=== PATIENT | female | born 1985 | race Two or more races ===

== ENCOUNTER 2024-10-19 15:00 | Emergency (ER) | payer SELFPAY ==
[~2024-10-19] VITALS: Ht 165.1 cm; Wt 73.0 kg
--- NOTE | 2024-10-19 15:10 | ED.PDOC ---
History of Present Illness HPI Comments 39-year-old female brought by paramedics from home because of chest pain for the past two days. She had chest pain yesterday for which she called the paramedics and but decided to stay home. She continues to have chest pain since yesterday to today. Patient states that she just broke up with her significant other which started the symptoms. Denies any past medical surgical history. 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 History Social History Smoker: Non-Smoker Alcohol: Denies ETOH Use Drugs: Denies Drug Use Constitutional: denies: chills, diaphoresis, fatigue, fever, malaise, sweats, weakness, others EENTM: denies: blurred vision, double vision, ear bleeding, ear discharge, ear drainage, ear pain, ear ringing, eye pain, eye redness, hearing loss, mouth pain, mouth swelling, nasal discharge, nose bleeding, nose congestion, nose pain, photophobia, tearing, throat pain, throat swelling, voice changes, others Respiratory: denies: cough, hemoptysis, orthopnea, SOB at rest, shortness of breath, SOB with excertion, stridor, wheezing, others Cardiovascular: reports: chest pain; denies: dizzy spells, diaphoresis, Dyspnea on exertion, edema, irregular heart beat, left arm pain, lightheadedness, palpitations, PND, syncope, others Gastrointestinal: denies: abdomen distended, abdominal pain, blood streaked bowels, constipated, diarrhea, dysphagia, difficulty swallowing, hematemesis, melena, nausea, poor appetite, poor fluid intake, rectal bleeding, rectal pain, vomiting, others Genitourinary: denies: abnormal vagina bleeding, burning, dyspareunia, dysuria, flank pain, frequency, hematuria, incontinence, pain, , vagina discharge, urgency, others Neurological: denies: dizziness, fainting, headache, left sided numbness, left sided weakness, numbness, paresthesia, pre-existing deficit, right sided numbness, right sided weakness, seizure, speech problems, tingling, tremors, weakness, others Musculoskeletal: denies: back pain, gout, joint pain, joint swelling, muscle pain, muscle stiffness, neck pain, others Integumetry: denies: bruises, change in color, change in hair/nails, dryness, laceration, lesions, lumps, rash, wounds, others Allergic/Immunocompromised: denies: Difficulty Healing, Frequent Infections, Hives, Itching, others Hematologic/Lymphatic: denies: anemia, blood clots, easy bleeding, easy bruising, swollen glands, others Endocrine: denies: excessive hunger, excessive sweating, excessive thirst, excessive urination, flushing, intolerance to cold, intolerance to heat, unexplained weight gain, unexplained weight loss, others Psychiatric: denies: anxiety, bipolar disorder, depression, hopeless, panic disorder, schizophrenia, sleepless, suicidal, others Physical Exam General Appearance: Moderate Distress HEENT: Normal ENT Inspection, Pharynx Normal, TMs Normal Neck: Full Range of Motion, Non-Tender, Normal, Normal Inspection Respiratory: Chest Non-Tender, Lungs Clear, No Accessory Muscle Use, No Respiratory Distress, Normal Breath Sounds Cardiovascular: No Edema, No JVD, No Murmur, No Gallop, Normal Peripheral Pulses, Regular Rate/Rhythm Breast Exam: Deferred Gastrointestinal: No Organomegaly, Non Tender, No Pulsatile Mass, Normal Bowel Sounds, Soft Genitalia: Deferred Pelvic: Deferred Rectal: Deferred Extremities: No calf tenderness, Normal capillary refill, Normal inspection, Normal range of motion, Non-tender, No pedal edema Musculoskeletal : Apperance: Normal Neurologic: Alert, payroll benefits administrator II-XII nml as Tested, No Motor Deficits, Normal Affect, Normal Mood, No Sensory Deficits Cerebellar Function: Normal Reflexes: Normal Skin: Dry, Normal Color, Warm Peripheral Pulses: 3+ Radial (R), 3+ Radial (L) Lymphatic: No Adenopathy Was a procedure done? Was a procedure done?: No EKG EKG : Cardiac Rhythm: NSR Differential Dx Considerations may include: Anxiety X-Ray, Labs, Meds, VS Patient alert. Complaining of chest pain. Vitals stable. Answering questions. She is anxious. Normal sinus rhythm. Was given Ativan. Explained to the patient. Continue monitoring. Stated that she has suicidal ideation to the nurse. Psychiatric evaluation. Time of 1ST Reevaluation: 15:08 Reevaluation 1ST: Unchanged Patient Education/Counseling: Diagnosis, Treatment, Prognosis, Need For Follow Up Family Education/Counseling: No Family Present SEPSIS Sepsis Screen Physician Orders Troponin-I Hs (10/19/24 15:10) *Tele Psych Consult (10/19/24 15:10) Lorazepam Tablet (Ativan Tablet) (10/19/24 15:30) Departure 1 Departure Time of Disposition: 15:09 Impression: Primary Impression: Anxiety Disposition: 01 HOME / SELF CARE / HOMELESS Condition: Good Discharged With: Self Critical Care Note Critical Care Time?: No Stability Stability form required: No Heart Score Heart Score: Heart Score Response (Comments) Value History Slightly Suspicious 0 EKG Normal 0 Age <45 0 Risk Factors No known risk factors 0 Troponin Normal limit 0 Total 0 SABRINA CAIN MD Oct 19, 2024 15:10
[2024-10-19] MEDS: LORazepam 0.5 MG TAB PO ONE (15:31)
[2024-10-19 15:37] VITALS: BP 110/73; TEMP 99.1
[2024-10-19 16:04] VITALS: PULSE 71; RESP 20; O2SAT 96
[2024-10-19 16:10] LABS: Cannabinoid Screen, Urine Neg (NEGATIVE)
[2024-10-19 16:14] LABS: Amphetamine Screen, Urine Neg (NEGATIVE); Barbiturate Scree,Urine Neg (NEGATIVE); Benzodiazephine Screen, Urine Neg (NEGATIVE); Cocaine Screen, Urine Neg (NEGATIVE); Opiate Scree,Urine Neg (NEGATIVE); Phencyclidine Screen, Urine Neg (NEGATIVE)
--- NOTE | 2024-10-20 01:16 | DVHINCON2 ---
Date of Service if different f: Oct 20, 2024 Time of Service: 01:16 Consult Consult Note PSYCHIATRY ED NEW CONSULT HPI: 39 yo F pt with PPH of anxiety presents to ED BIBA for safety, psychiatric stabilization, and possible med initiation in setting of CP and SI related to acute anxiety. Psychiatry consulted for safety evaluation and recommendations in context of current presentation Pt reports over past several days experiencing acute anxiety/panic symptoms to include excessive worry, restlessness, CP, SOB, palpitations, feeling tensed, "impending doom", and diaphoretic. Also fleeting SI with no plan/intent. Identifies primary stress as recent r/s strains, possibly breakup, with BF. Denies HI/AVH/paranoia/catatonic/perceptual disturbances. No overt manic, psychotic, MDD, cognitive, dissociative phenomena, OCD, PTSD, or somatic symptoms noted Currently denies depressed mood, hopelessness, helplessness, isolation, negative thoughts, or anhedonia. Overall appears future oriented/goal directed Does not have active outpt MH services established at this time although has sought outpt MH services in past for therapy. Currently not on any psychotropic agents, no prior psych med trials Denies ETOH, THC or IDU prior to admission although does admit to recent increase in ETOH use - drinks couple of shots vodka almost every night Single, two children whom she resides with, employed, some support system noted (immediate family) Unknown trauma hx. Denies FH of psych hospitalizations, suicide attempts, or completed suicides No acute medical/chronic pain issues, hx of seizures/TBI, or recent head injuries, NKDA Denies hx of SI/SIB/SA/PSG or prior psych hospitalizations/5150 holds. Denies history of violence, aggression, or assaultive behaviors. Denies recent hx of impulsivity, attention seeking behaviors, anger outbursts, emotional dysregulation, mood reactivity, or engaging in risky behaviors. Denies any legal problems. Does not have access to firearms Currently denies SI/HI/AVH. Identifies self/family as PPF. No acute safety concerns noted during encounter MSE: General Appearance/Behavior: Alert and awake; appears stated age, fair grooming and hygiene; calm and cooperative, fair eye contact, no PMA/PMR Speech: coherent, rrr Thought Process: L/L/GD Thought Content: Abnormal Thoughts and Perceptions: denies dissociative symptoms Homicidality / Violent Thoughts: adamantly denies HI Suicidality: adamantly denies SI Hallucinations: denies AVTH Delusions: denies paranoia, persecutory, or grandiose delusions Obsessions /compulsions: None Judgment and Insight: fair/fair Mood & Affect: "much better now" with mood-congruent, appropriate Orientation: oriented x 3 Attention/Concentration: appears intact Cognition: grossly intact Assessment: 39 yo F pt with PPH of anxiety presents to ED BIBA for safety, psychiatric stabilization, and possible med initiation in setting of CP and SI related to acute anxiety Currently denies SI/HI/AVH. Linear and appears future oriented/goal directed in thought with fair J/I. Identifies several protective factors including a desire to live, children support, employment, etc. No hx of SI/SA/SIB or prior psych hospitalizations is reassuring. Pt medically cleared Presenting MH symptoms appear more secondary to difficulty controlling emotions and ineffective coping mechanisms in context of acute r/s stressor (see HPI) with minimal interference in daily functioning Does not presently show any signs of immediate danger to self/others or GD that would necessitate 5150 or involuntary psych admission. However offered voluntary psych hospitalization but pt declined. Also declined further ED observation/reevaluation. No acute safety concerns noted. Acute suicide risk appears nonexistent to relatively low Pts symptoms should be managed safely in an outpatient setting - pt currently does not have psychiatrist/therapist out in community although interested in seeking MH resources prior to d/c for psychotherapy Currently not on any psychotropics. May benefit from a PRN anxiolytic to address acute anxiety/panic symptoms exacerbated prior to this admission Primary Diagnosis: Anxiety disorder unspecified. Plan: Does not warrant involuntary inpatient psychiatric hospitalization or 5150 hold No acute safety concerns Pt can be safely discharged back to current residence Recommend d/c pt on 3 week rx for Hydroxyzine 25 mg bid prn anxiety Risks/benefits/alternative treatments discussed, informed consent provided by pt Supportive tx provided, discussed safety plan with pt Emphasized sleep hygiene, exercise, healthy nutrition, LIMIT EtOH intake Encouraged mindfulness techniques (reading, walking, meditation, journaling, exercise, deep breathing) during times of stress Would benefit from establishing community MH services for psychotx please provide pt MH resources prior to discharge per pts request for psychotherapy Encouraged f/u with PCP for routine medical/preventive care Instructed pt to call/text [phone] or return to ED if MH symptoms worsen or new onset SI/HI upon discharge Pt verbalized understanding and is receptive to above tx plan This case was discussed with ED nurse/provider and all parties in agreement with above tx plan Fco Hill MD Plan discussed with: Patient FCO HILL MD Oct 20, 2024 01:16
[2024-10-20] MEDS ORDERED: HYDR-4924 PO (01:59)
== END 2024-10-20 03:12 | disposition home or self-care (01) ==
LOC: EDBD 15:00 → ER 15:00
DX: F41.9 Anxiety disorder, unspecified (principal)
CPT/HCPCS: 36415; 80307; 84484